=== PATIENT | male | born 1995 | race Caucasian/White ===

== ENCOUNTER 2018-09-23 19:36 | Emergency (ER) | payer OTHER ==
[~2018-09-23] VITALS: Ht 173.9 cm; Wt 66.2 kg
[2018-09-23] MEDS ORDERED: KETOROLAC10 MG PO (20:43)
[2018-09-23] MEDS ORDERED: CEFDINIR300 MG PO (20:43)
== END 2018-09-23 20:47 | disposition home or self-care (01) ==
LOC: ED 19:36
DX: H66.011 Acute suppurative otitis media with spontaneous rupture of ear drum, right ear (principal); K08.89 Other specified disorders of teeth and supporting structures

== ENCOUNTER 2021-01-10 14:45 | Emergency (ER) | payer OTHER ==
[~2021-01-10] VITALS: Ht 175.2 cm; Wt 70.3 kg
[~2021-01-10 14:45] MED LIST: CEFDINIR300 MG PO; KETOROLAC10 MG PO
[2021-01-10] MEDS ORDERED: MUPIROCIN15 GM T (15:39)
[2021-01-10] MEDS ORDERED: DOXYCYCLINE100 M3 PO (15:39)
== END 2021-01-10 16:15 | disposition home or self-care (01) ==
LOC: ED 14:45
DX: L01.00 Impetigo, unspecified (principal); L08.89 Other specified local infections of the skin and subcutaneous tissue; Z79.899 Other long term (current) drug therapy